=== PATIENT | male | born 1955 | race Caucasian/White ===

== ENCOUNTER 2019-05-07 14:39 | Inpatient (IN) ==
[2019-05-07] MEDS ORDERED: Isovue-370 500 ML BOTTLE IVP ONE ×2 (14:49→15:29)
[2019-05-07 15:06] LABS: Hematocrit 39.3 % (37.5-50.1); Hemoglobin 14.2 g/dL (12.9-16.9); Mean Corpuscular HGB Conc 36.1 g/dL (31.6-35.5); Mean Corpuscular Hemoglobin 31.1 pg (28.0-33.3); Mean Platelet Volume 10.7 fL (9.4-12.4); Platelet Count 246 K/mcL (140-400); Red Blood Count 4.57 M/mcL (4.19-5.50); Red Cell Distribution Width 11.8 % (11.5-14.5); White Blood Count 8.8 K/mcL (4.3-11.1)
[2019-05-07 15:11] LABS: Prothrombin Time 10.9 Seconds (9.4-12.1)
[2019-05-07 15:14] LABS: Activated Partial Thrombo Time 29.4 Seconds (26.0-36.0)
[2019-05-07 15:25] LABS: BUN/Creatinine Ratio 14 (6-26); Blood Urea Nitrogen 14 mg/dL (8-23); Calcium 9.7 mg/dL (8.6-10.3); Carbon Dioxide 32 mEq/L (23-29); Chloride 95 mEq/L (98-107); Ethanol < 10 mg/dL (Less than 10); Glucose 386 mg/dL (70-105); Osmolality,Calculated 294 (280-300); Potassium 4.1 mEq/L (3.5-5.1); Sodium 134 mEq/L (136-145); Troponin I < 0.03 ng/mL (< 0.04); eGFR For African Americans > 60 (> 60); eGFR For Non-African Americans > 60 (> 60)
[2019-05-07 15:51] LABS: Bilirubin,Urine Negative (Negative); Blood,Urine Negative (Negative); Clarity,Urine Clear (Clear); Color,Urine Yellow (Yellow); Glucose,Urine (UA) >=1000 mg/dL (Normal); Ketones,Urine Negative (Negative); Leukocyte Esterase,Urine Negative (Negative); Nitrite,Urine Negative (Negative); PH,Urine 6.5 pH Units (5.0-8.0); Protein,Urine Trace mg/dL (Neg-Trace); Specific Gravity,Urine > 1.030 (1.010-1.025); Urobilinogen,Urine Normal (Normal)
[2019-05-07 15:58] LABS: Amphetamine Screen,Urine Negative ng/mL (Cutoff=1000); Barbiturate Screen,Urine Negative ng/mL (Cutoff=200); Benzodiazepines Screen,Urine Negative ng/mL (Cutoff=200); Cannabinoid Screen,Urine Negative ng/mL (Cutoff = 50); Cocaine Screen,Urine Negative ng/mL (Cutoff= 300); Opiate Screen,Urine Negative ng/mL (Cutoff=300); Phencyclidine Screen,Urine Negative ng/mL (Cutoff=25)
[2019-05-07] MEDS ORDERED: Insulin Human Regular 4 UNIT in 0.9 % Sodium Chloride 10 ML IV ONE (16:02)
[2019-05-07] MEDS ORDERED: Aspirin 325 MG TABLET PO ONE (16:44)
[2019-05-07] MEDS ORDERED: MOM Conc 10 ML UD.LIQ PO PRN (18:28)
[2019-05-07] MEDS ORDERED: Naloxone 0.4 MG/ML INJ IVP PRN (18:28)
[2019-05-07] MEDS ORDERED: Ondansetron ODT 4 MG TAB.RAPDIS SL PRN (18:28)
[2019-05-07] MEDS ORDERED: Mag Hydrox/Al Hydrox/Simeth 30 ML UDC PO PRN (18:28)
[2019-05-07] MEDS ORDERED: Ibuprofen 400 MG TABLET PO PRN (18:36)
[2019-05-07] MEDS ORDERED: Dextrose Gel 15 GM/37.5 ML TUBE PO PRN ×2 (18:37)
[2019-05-07] MEDS ORDERED: D5% in Water 1,000 ML IVC PRN (18:37)
[2019-05-07] MEDS ORDERED: *HR* Dextrose 50 % in Water (Syg) 50 ML SYRINGE IVP PRN (18:37)
[2019-05-07] MEDS: Gabapentin 300 MG CAPSULE PO SCH (22:08)
[2019-05-07] MEDS: Insulin LISPRO 300 UNITS/3 ML VIAL SQ SCH (22:10)
[2019-05-08 01:04] LABS: Hemoglobin 12.7 g/dL (12.9-16.9); Mean Corpuscular HGB Conc 35.3 g/dL (31.6-35.5); Mean Corpuscular Hemoglobin 30.7 pg (28.0-33.3); Mean Platelet Volume 10.8 fL (9.4-12.4); Platelet Count 213 K/mcL (140-400); Red Blood Count 4.14 M/mcL (4.19-5.50); Red Cell Distribution Width 11.8 % (11.5-14.5); White Blood Count 6.9 K/mcL (4.3-11.1)
[2019-05-08 01:10] LABS: Prothrombin Time 11.5 Seconds (9.4-12.1)
[2019-05-08] MEDS: *HR* Heparin 5,000 UNIT/ML VIAL SQ SCH ×3 (01:11→17:01)
[2019-05-08 01:20] LABS: BUN/Creatinine Ratio 16 (6-26); Blood Urea Nitrogen 15 mg/dL (8-23); Calcium 8.9 mg/dL (8.6-10.3); Carbon Dioxide 32 mEq/L (23-29); Chloride 99 mEq/L (98-107); Cholesterol 173 mg/dL (< 200); Glucose 342 mg/dL (70-105); HDL Cholesterol 43 mg/dL (40-59); LDL Cholesterol,Calculated 104 mg/dL (0-99); Osmolality,Calculated 294 (280-300); Phosphorous 3.3 mg/dL (2.7-4.5); Potassium 3.5 mEq/L (3.5-5.1); Sodium 135 mEq/L (136-145); Triglycerides 130 mg/dL (< 150); eGFR For African Americans > 60 (> 60); eGFR For Non-African Americans > 60 (> 60)
[2019-05-08 04:45] LABS: Estimated Average Glucose 309 mg/dl
[2019-05-08] MEDS: Insulin LISPRO 300 UNITS/3 ML VIAL SQ SCH ×3 (08:10→17:01)
[2019-05-08] MEDS: Gabapentin 300 MG CAPSULE PO SCH ×2 (08:11→21:57)
[2019-05-08] MEDS: Venlafaxine XR (24 HR) 75 MG CAP.ER.24H PO SCH (08:11)
[2019-05-08] MEDS: Aspirin Enteric Coated 81 MG Tablet PO SCH (08:11)
[2019-05-09] MEDS: *HR* Heparin 5,000 UNIT/ML VIAL SQ SCH ×2 (00:28→09:09)
[2019-05-09] MEDS: Insulin LISPRO 300 UNITS/3 ML VIAL SQ SCH ×2 (00:29→09:07)
[2019-05-09 02:14] LABS: Hematocrit 34.6 % (37.5-50.1); Mean Corpuscular HGB Conc 34.7 g/dL (31.6-35.5); Mean Corpuscular Hemoglobin 30.9 pg (28.0-33.3); Mean Corpuscular Volume 89.2 fL (83.0-100.0); Mean Platelet Volume 10.8 fL (9.4-12.4); Platelet Count 199 K/mcL (140-400); Red Blood Count 3.88 M/mcL (4.19-5.50); Red Cell Distribution Width 11.5 % (11.5-14.5); White Blood Count 6.9 K/mcL (4.3-11.1)
[2019-05-09 02:30] LABS: BUN/Creatinine Ratio 19 (6-26); Blood Urea Nitrogen 16 mg/dL (8-23); Calcium 8.7 mg/dL (8.6-10.3); Carbon Dioxide 28 mEq/L (23-29); Chloride 104 mEq/L (98-107); Glucose 197 mg/dL (70-105); Osmolality,Calculated 291 (280-300); Potassium 3.7 mEq/L (3.5-5.1); Sodium 137 mEq/L (136-145); eGFR For African Americans > 60 (> 60); eGFR For Non-African Americans > 60 (> 60)
[2019-05-09 07:23] VITALS: BP 150/88
[2019-05-09] MEDS: Venlafaxine XR (24 HR) 75 MG CAP.ER.24H PO SCH (09:09)
[2019-05-09] MEDS: Aspirin Enteric Coated 81 MG Tablet PO SCH (09:09)
[2019-05-09] MEDS: Gabapentin 300 MG CAPSULE PO SCH (09:09)
== END 2019-05-09 14:52 | disposition home or self-care (01) | DRG 65 ==
LOC: 3BNU 14:39 → EMEROOARM 14:39 → 2NENU 18:20
PROVIDERS: ADMIT Family Medicine; ATTEND Family Medicine